=== PATIENT | female | born 1965 | race Caucasian/White ===

== ENCOUNTER 2017-04-13 09:22 | Day surgery (SDC) | payer MEDICAID ==
[2017-04-13 10:22] VITALS: BMI 30.2
[2017-04-13] MEDS ORDERED: Lactated Ringer's 1,000 ML IV ONE (10:30)
[2017-04-13 10:37] VITALS: O2SAT 100
[2017-04-13] MEDS ORDERED: Lidocaine 2% MPF (5 ml) Inj ONE (11:39)
[2017-04-13] MEDS ORDERED: Midazolam 2 MG/2 ML VIAL ONE (11:39)
[2017-04-13] MEDS ORDERED: Propofol 10 mg/ml Inj (20 ML) ONE (12:02)
[2017-04-13 12:04] VITALS: TEMP 96.8
[2017-04-13 12:17] VITALS: BP 100/70; PULSE 79; RESP 18
== END 2017-04-13 12:30 | disposition home or self-care (01) ==
LOC: H.ENDO 09:22
PROVIDERS: ATTEND Internal Medicine Gastroenterology
DX: Z12.11 Encounter for screening for malignant neoplasm of colon (principal); K64.8 Other hemorrhoids
CPT/HCPCS: G0121; J2250; J2704; J7120